=== PATIENT | female | born 1945 | race Caucasian/White ===

== ENCOUNTER 2018-09-11 18:06 | Inpatient (IN) | payer OTHER ==
[~2018-09-11] VITALS: Ht 152.4 cm; Wt 52.5 kg
[~2018-09-11 18:06] MED LIST: HUMALOG100 U/ML SC; LAC PO; LANTUS SOLOS100 U/M1 SC; LOMOTIL1 TAB PO
[2018-09-11 18:11] VITALS: Ht 152.4 cm; Wt 52.5 kg
--- NOTE | 2018-09-11 18:11 | NUR ---
PT BIBA FOR SOB AND CHEST PRESSURE/TIGHTNESS FOR 5 DAYS. PT STS SHE FELT LIKE SHE COULDN'T CATCH HER BREATH SO SHE CALLED 911. PT STS SHE HAS BEEN TAKING HER BS AT HOME AND IT READ "HI". AAOX4, RESPIRATIONS ARE SHALLOW AND RAPID, REPORTS NAUSEA X5 DAYS WITH INCREASED NAUSEA TODAY. ABLE TO AMBULATE TO BED WITHOUT INCIDENCE FROM AMBULANCE GURNEY. NO SWELLING NOTED TO EXTREMITIES. REPORTS DRY MOUTH. MEDICS GAVE PT 200CC NS IV BOLUS AND 324MG ASA PO HUMAN RESOURCES SUPPORT SPECIALIST; ESTABLISHED 22G IV TO R FA. ARRIVED WITH INSULIN PUMP ATTACHED TO ABD AREA. CONNECTED TO [facility].
[2018-09-11 18:43] LABS: BASOPHIL % 0.5 % (0-2); PLATELET COUNT 227 x10^3mcL (130-400); RED CELL DISTRIBUTION WIDTH 14.9 % (11.5-14.5)
--- NOTE | 2018-09-11 18:45 | NUR ---
REPORT GIVEN TO NESTOR MATSON
[2018-09-11 19:14] LABS: UA SPECIFIC GRAVITY <=1.005 (1.005-1.035); microscopic required? YES; urine erythrocyte NEGATIVE (NEGATIVE)
[2018-09-11 19:18] LABS: ALBUMIN 4.1 g/dL (3.4-5.0); ALKALINE PHOSPHATASE 142 U/L (46-116); ALT/SGPT 16 U/L (14-59); AST/SGOT 11 U/L (15-37); CALCIUM 10.5 mg/dL (8.5-10.1); CARBON DIOXIDE 11.4 mmol/L (21-32); CHLORIDE SERUM 94 mmol/L (98-107); SODIUM SERUM 125 mmol/L (136-145); TOTAL PROTEIN, SERUM 6.9 g/dL (6.4-8.2)
--- NOTE | 2018-09-11 19:18 | NUR ---
PER DR ELENA, HAVE PT TURN OFF INSULIN PUMP. PT STATES "I'LL JUST DISCONNECT IT."
[2018-09-11 19:25] LABS: GLUCOSE SERUM 737 mg/dL (74-106); POTASSIUM SERUM 6.6 mmol/L (3.5-5.1)
--- NOTE | 2018-09-11 19:31 | NUR ---
PT AWAKE, ALERT, AND ORIENTED SITTING ON GURNEY WITH HOB RAISED. PT STATES "MAN I REALLY GOTTA PEE". PT ASSISTED ONTO BED GARRISON. PT URINATED MODERATE AMOUNT OF CLEAR YELLOW URINE. RT AT BEDSIDE FOR ABG. PT BREATHING EVEN AND UNLABORED BUT SPEAKING 4-5 WORD SENTENCES.
--- NOTE | 2018-09-11 20:18 | NUR ---
IV TO R WRIST INFILTRATED. IV REMOVED, ANGIO CATH INTACT. BLEEDING CONTROLLED WITH PRESSURE. IV STARTED TO R FA 22 G. IV FLUSHED WITH NO COMPLICATIONS.
--- NOTE | 2018-09-11 20:26 | NUR ---
ACTUAL WT, 52.0 KG. PT ASSISTED ONTO SCALE AT BEDSIDE AND ASSISTED BACK ONTO GURNEY WITH NO INCIDENCES NOTED.
--- NOTE | 2018-09-11 20:40 | NUR ---
ASKED PT ABOUT PREVIOUS BRUISING TO ARMS AND PT STATED "NO I DONT HAVE ANY WOUNDS BUT I DO HAVE SHINGLES". AWARE.
--- NOTE | 2018-09-11 20:42 | NUR ---
ATTEMPTED TO CALL REPORT TO KAIT IN ICU, TOLD KAIT RN WOULD CALL BACK.
--- NOTE | 2018-09-11 20:52 | NUR ---
REPORT GIVEN TO KAIT BAEZ
--- NOTE | 2018-09-11 20:59 | NUR ---
PT TRANSFERED TO ICU BED 5 AT THIS TIME IN NAD. BREATHING EVEN AND UNLABORED. PT A&0X4, SPEAKING FULL CLEAR SENTENCES. PT VERBALIZED UNDERSTANDING OF PLAN OF CARE. PT TRANSFERED VIA [facility] ACCOMPANIED BY IRAM FOREMAN AND DANO BAEZ. INSULIN DRIP AND IV FLUIDS ENDORSED TO KAIT BAEZ.
--- NOTE | 2018-09-11 21:00 | NUR ---
RECEIVED PT FROM ER ACCOMPANIED BY IRAM FOREMAN AND NESTOR MATSON AND TRANSFERRED TO ICU BED 5 PT HAS STABLE GAIT UPON WALKING. PT PLACED ON FULL FOOD TASTER AND PULSE OXIMETRY. RECEIVED PT AOX4 ABLE TO RESPOND TO COMMANDS, MAKE NEEDS KNOWN. GCS=15. PUPILS 4 MM BRISK RESPONSE TO LIGHT B/L, PERRLA. NO REPORTED MATOS, SPEECH CLEAR, NO FACIAL DROOP. TRACHEA MIDLINE, NO DRAINAGE TO EENT, NO EENT COMPLAINTS. PT WEARS GLASSES.PT CAME IN FOR SOB TO ER. PT LUNG SOUNDS CTAB, CHEST RISE/FALL SYMMETRIC, E/U BREATHING, DENIES SOB. NO ACUTE RESP DISTRESS. 2L NC INTACT TO PT.PT CAME IN FOR CHEST PAIN. DENIES CHEST PAIN AT THIS TIME. S1/S2 SOUNDS HEARD, CHEST WALL STABLE.SKIN COLOR CONSISTENT WITH ETHNICITY, CAP REFILL <3 SEC, PULSES MODERATE X4 EXTREMITIES, NO EDEMA. NS INFUSING @ 250 CC/HR FROM ER. INSULIN GTT CHANGED AND NOW INFUSING @ 0.1 UNITS/KG/HR PER DKA PROTOCOL.GEN WEAKNESS REPORTED. ROM ACTIVE, STEADY GAIT TO ICU BED. NO CONTRACTURES/DEFORMITIES NOTED. PT ABLE TO TURN/REPOSITION Q2H. NO JOINT SWELLING/TENDERNESS, INTACT.ACTIVE BOWEL SOUNDS X4 QUADRANTS. ABD SOFT/FLAT. NO BM NOTED. PT REPORTS LAST BM WAS YESTERDAY BROWN STOOL.PT ABLE TO URINATE WITH BEDSIDE COMMODE, CLEAR YELLOW URINE, APPROX 500 ML. NO LABIAL EDEMA, NO VAGINAL DISCHARGE NOTED.PT REPORTS HX OF SHINGLES WITH RASH TO FOREHEAD BUT NONE NOTED AT THIS TIME, PT REPORTS IT HAS CLEARED RECENTLY SINCE TAKING HER MEDICATIONS SHE DOES NOT RECALL AT THIS TIME. PT REPORTS A SKIN RASH TO LLE CARDONA.PT CALM/COOPERATIVE WITH CARE. FAMILY SUPPORTIVE AT BEDSIDE, UPDATED PT AND FAMILY ON POC AND DISEASE PROCESS AND HOSPITAL STAY. BED AT LOWEST SETTING, CALL LIGHT WITHIN REACH, SIDE RAILS UP X2, WILL CONT TO MONITOR.
[2018-09-11 21:26] VITALS: BP 147/73
--- NOTE | 2018-09-11 22:02 | NUR ---
ATTEMPTED TO CALL DR. RAMESH FOR ADMITTING ORDERS THRU THE ANSWERING SERVICE.
--- NOTE | 2018-09-11 22:15 | NUR ---
RECEIVED CALL BACK FROM DR. RAMESH. WILL INPUT ORDERS WITH ASSISTANCE OF NESTOR ZARAGOZA.
[2018-09-11 23:08] VITALS: BP 122/55
--- NOTE | 2018-09-11 23:17 | NUR ---
NASAL CANNULA REMOVED AT THIS TIME. PT DENIES SOB OR TROUBLE BREATHING. PT STATES "I DONT THINK I NEED THE OXYGEN". PT SATURATING AT 98-99% ON ROOM AIR. WILL CONTINUE TO MONITOR.
[2018-09-12 01:11] LABS: CALCIUM 8.9 mg/dL (8.5-10.1); CARBON DIOXIDE 18.1 mmol/L (21-32); CHLORIDE SERUM 109 mmol/L (98-107); CREATININE SERUM 1.5 mg/dL (0.6-1.0); GLUCOSE SERUM 323 mg/dL (74-106); MAGNESIUM 1.9 mg/dL (1.8-2.4); PHOSPHOROUS 2.3 mg/dL (2.5-4.9); POTASSIUM SERUM 5.1 mmol/L (3.5-5.1); SODIUM SERUM 138 mmol/L (136-145)
--- NOTE | 2018-09-12 02:04 | NUR ---
BLOOD SUGAR 161. INSULIN GTT TITRATED TO 0.05 UNITS/KG/HR. WILL ORDER D5 1/2 NS PER DKA PROTOCOL AND DR. RAMESH ORDER.
--- NOTE | 2018-09-12 02:08 | NUR ---
PT REPORTING A MILD HEADACHE AT THIS TIME. WILL ADMINISTER TYLENOL PER EMAR.
--- NOTE | 2018-09-12 02:10 | NUR ---
D5 1/2 NS INITIATED AT THIS TIME @ 150 ML/HR TO KEEP BLOOD SUGAR BETWEEN 150-200.
[2018-09-12 03:02] VITALS: BP 115/52
--- NOTE | 2018-09-12 04:50 | NUR ---
SALES PROMOTION COORDINATOR MIREYA AT BEDSIDE FOR LAB DRAW.
[2018-09-12 05:46] LABS: CARBON DIOXIDE 17.2 mmol/L (21-32); CHLORIDE SERUM 109 mmol/L (98-107); CREATININE SERUM 1.4 mg/dL (0.6-1.0); GLUCOSE SERUM 291 mg/dL (74-106); MAGNESIUM 2.1 mg/dL (1.8-2.4); PHOSPHOROUS 3.3 mg/dL (2.5-4.9); POTASSIUM SERUM 4.8 mmol/L (3.5-5.1); SODIUM SERUM 137 mmol/L (136-145)
--- NOTE | 2018-09-12 06:35 | NUR ---
PT REMAINS ON D5 1/2 NS @ 150 ML/HR AND INSULIN GTT @ 0.05 UNITS/KG/HR PER DKA PROTOCOL. PT SLEEPING BUT EASILY AROUSABLE, NO ACUTE RESP DISTRESS, NO SOB. PT REMAINS ON FULL PARK ACTIVITIES COORDINATOR, CONTINUOUS PULSE OXIMETRY AND NIBP INTERVALS. BED AT LOWEST SETTING, CALL LIGHT WITHIN REACH, HOB ELEVATED 30 DEGREES, SIDE RAILS UP X2. WILL CONTINUE TO MONITOR.
--- NOTE | 2018-09-12 07:15 | NUR ---
GAVE REPORT TO NESTOR STONE. UPDATES GIVEN, QUESTIONS ANSWERED. ENDORSED CARE.
[2018-09-12 07:20] VITALS: BP 106/47
--- NOTE | 2018-09-12 07:20 | NUR ---
PATIENT AWAKE AND ORIENTED TO PERSON, PLACE AND TIME. PATIENT DENIES SHORTNESS OF BREATH, NAUSEA/VOMITING OR PAIN AT THIS TIME. IV SITES TO LFA AND RFA INTACT. IVF D5 1/2 NS AT 150ML/HR AND REGULAR INSULIN DRIP AT 0.05 U/KG/HR. TELE # 5 READS NORMAL SINUS RHYTHMS AT THIS TIME. CALL LIGHT WITHIN REACH. SIDE RAILS UPX 3.
[2018-09-12 08:37] LABS: CALCIUM 9.2 mg/dL (8.5-10.1); CARBON DIOXIDE 18.4 mmol/L (21-32); CHLORIDE SERUM 109 mmol/L (98-107); CREATININE SERUM 1.5 mg/dL (0.6-1.0); GLUCOSE SERUM 90 mg/dL (74-106); PHOSPHOROUS 3.1 mg/dL (2.5-4.9); POTASSIUM SERUM 4.5 mmol/L (3.5-5.1); SODIUM SERUM 141 mmol/L (136-145)
--- NOTE | 2018-09-12 11:01 | NUR ---
DR VILLAREAL AT BEDSIDE TO ASSESS PT. UPDATES PROVIDED.
[2018-09-12 11:14] VITALS: BP 128/56
--- NOTE | 2018-09-12 12:09 | NUR ---
DR. HUGO IS AT BEDSIDE SEEING THE PATIENT.
[2018-09-12 13:31] LABS: CALCIUM 9.4 mg/dL (8.5-10.1); CARBON DIOXIDE 19.9 mmol/L (21-32); CHLORIDE SERUM 108 mmol/L (98-107); CREATININE SERUM 1.2 mg/dL (0.6-1.0); GLUCOSE SERUM 177 mg/dL (74-106); PHOSPHOROUS 2.6 mg/dL (2.5-4.9); POTASSIUM SERUM 4.7 mmol/L (3.5-5.1); SODIUM SERUM 139 mmol/L (136-145)
[2018-09-12 15:30] VITALS: BP 132/67; BP 139/49
--- NOTE | 2018-09-12 15:49 | NUR ---
PATIENTS IV CAME OUT AT THIS TIME. PATIENT ASSESSED, CLEANSED, LINENS AND GOWN CHANGED. NO PROBLEMS NOTED. PATIENT STABLE, WILL CONTINUE TO MONITOR.
[2018-09-12 16:20] LABS: CALCIUM 9.3 mg/dL (8.5-10.1); CHLORIDE SERUM 107 mmol/L (98-107); CREATININE SERUM 1.1 mg/dL (0.6-1.0); GLUCOSE SERUM 270 mg/dL (74-106); PHOSPHOROUS 2.3 mg/dL (2.5-4.9); POTASSIUM SERUM 4.5 mmol/L (3.5-5.1); SODIUM SERUM 138 mmol/L (136-145)
--- NOTE | 2018-09-12 16:49 | NUR ---
AGAP CLOSED X2. DR SANDERS MADE AWARE. ORDERS RECEIVED TO DC DKA PROTOCOL, 45 UNITS LANTUS SQ NOW AND QD AFTER, SS INSULIN, ACHS ACCUCHECKS, AND TO ADD BMP TO AM LABS.
--- NOTE | 2018-09-12 18:07 | NUR ---
REGULAR INSULIN DRIP DISCONTINUED ORDERED.
--- NOTE | 2018-09-12 18:18 | NUR ---
REPORT GIVEN TO NESTOR WILDER. CONCERNS ADDRESSED.
--- NOTE | 2018-09-12 19:02 | NUR ---
REPORT GIVEN TO NESTOR KENT. ALL QUESTIONS ANSWERED.
--- NOTE | 2018-09-12 19:05 | NUR ---
RECEIEVED PATIENT REPORT FROM NESTOR WILDER. QUESTIONS AND CONCERNS ADDRESSED.
--- NOTE | 2018-09-12 19:15 | NUR ---
RECIEVED PATIENT LAYING IN BED, A&O X4, GCS OF 15, FOLLOWS COMMANDS, ABLE TO MAKE NEEDS KNOWN. SR TO FLUTE POLISHER, DENIES CHEST PAIN. SKIN WARM/DRY/INTACT, IV TO RFA PATENT AND FLUSHING WELL. PULSES PALPABLE, CAP REFILL <3 SECONDS, NO EDEMA PRESENT. PATIENT IS AMBULATORY, ABLE TO BEDSIDE COMMODE. WILL MONITOR PATIENT CLOSELY.
[2018-09-12 19:20] VITALS: BP 153/59
--- NOTE | 2018-09-12 19:27 | NUR ---
PATIENT REPORT GIVEN TO NSETOR HAAS. QUESTIONS AND CONCERNS ADDRESSED. PATIENT IS TO BE TRANSFERRED TO ROOM 205 B.
--- NOTE | 2018-09-12 20:00 | NUR ---
RECEIVED TRANSFER PT FROM ICU VIA WHEELCHAIR WITH YOLI BAEZ AT BEDSIDE. PT IS AAOX4. SPEECH CLEAR. ABLE TO MAKE NEEDS KNOWN. DENIES PAIN OR DISCOMFORT. NO TELE MONITOR NEEDED. DENIES CHEST PAIN. LUNG SOUNDS CLEAR. BREATHING EASILY ON ROOM AIR. BS ACTIVE IN ALL FOUR QUADS. NO ABD PAIN NOTED. VOIDING FREELY WITH BRP. PT ABLE TO AMBULATE WITH STEADY GAIT, NO ASSISTANCE NEEDED. DENIES DIZZINESS. IV TO RFA, HL. ORIENTED PT TO ROOM AND SURROUNDINGS. INSTRUCTED PT TO USE CALL LIGHT WHICH IS WITHIN REACH. BED IS IN LOWEST POSITION. ALL NEEDS TENDED TO. WILL CONTINUE TO MONITOR CLOSELY.
[2018-09-12 20:30] VITALS: BP 146/52
--- NOTE | 2018-09-12 21:10 | NUR ---
FSBS IS 468, RECHECKED AND BS IS 441, COVERED PT WITH 18 UNITS OF REGULAR INSULIN ORDERED. PER PT, SHE WOULD LATER LIKE A SPOT CHECK TO SEE HOW MUCH BS HAS DECREASED POST INSULIN SQ. WILL CONTINUE TO MONITOR CLOSELY.
--- NOTE | 2018-09-12 23:00 | NUR ---
SPOT CHECK FSBS IS 387, TRENDING DOWN WILL RECHECK IN AM.
--- NOTE | 2018-09-13 03:45 | NUR ---
PT SLEEPING IN INTERVALS, IN DISTRESS NOTED. WILL CONTINUE TO MONITOR CLOSELY.
[2018-09-13 06:21] VITALS: BP 135/52
[2018-09-13 06:29] LABS: BASOPHIL % 0.6 % (0-2); PLATELET COUNT 225 x10^3mcL (130-400)
--- NOTE | 2018-09-13 06:30 | NUR ---
FSBS IS 70, JUICE PROVIDED. PT LYING IN BED IN NO DISTRESS. CALL LIGHT WITHIN REACH. BED IS IN LOWEST POSITION. ALL NEEDS TENDED TO. WILL ENDORSE TO INCOMING SHIFT.
[2018-09-13 06:32] LABS: CALCIUM 10.7 mg/dL (8.5-10.1); CARBON DIOXIDE 21.9 mmol/L (21-32); CHLORIDE SERUM 110 mmol/L (98-107); GLUCOSE SERUM 71 mg/dL (74-106); POTASSIUM SERUM 3.8 mmol/L (3.5-5.1); SODIUM SERUM 143 mmol/L (136-145)
[2018-09-13 06:39] LABS: RED CELL DISTRIBUTION WIDTH 15.8 % (11.5-14.5)
--- NOTE | 2018-09-13 07:10 | NUR ---
RECEIVED BEDSIDE REPORT FROM LOCK PLATER NURSE. PATIENT RESTING COMFORTABLY IN BED. NO APPARENT SIGNS OF PAIN, SOB, OR RESPIRATORY DISTRESS. PATIENT ON ROOM AIR. IV TO RIGHT FOREARM SALINE LOCKED. NO EDEMA OR ERYTHEMA NOTED AT SITE. PATIENT IS CONCERNED ABOUT SUGAR LEVELS BEING "ALL OVER THE PLACE" LAST GLUCOSE CHECK 70. QUESTIONS AND CONCERNS ADDRESSED. SAFETY PRECAUTIONS IN PLACE.
--- NOTE | 2018-09-13 07:45 | NUR ---
PHYSICAL ASSESSMENT COMPLETED PLEASE SEE PROBLEM FOCUSED CARE FOR DETAILS.
--- NOTE | 2018-09-13 09:00 | NUR ---
PATIENT IS STABLE. RESTING COMFORTABLY IN BED. NO APPARENT SIGNS OF PAIN, SOB, OR RESPIRATORY DISTRESS. DENIES OTHER NEEDS AT THIS TIME. SAFETY PRECAUTIONS IN PLACE.
--- NOTE | 2018-09-13 10:42 | NUR ---
ADMINISTERED MEDICATION PER EMAR. PATIENT EDUCATED ON NEED FOR MEDICATION WELL ADVERSE EFFECTS TO REPORT. PATIENT VERBALIZED UNDERSATNDING. TOLORTATED WELL. QUESTIONS AND CONCERNS ADDRESSED. PATIENT DENIES OTHER NEEDS AT THIS TIME. SAFETY PRECAUTIONS IN PLACE.
[2018-09-13 10:48] VITALS: BP 186/63
--- NOTE | 2018-09-13 10:54 | NUR ---
PAGED MD HUGO TO MAKE AWARE OF HOME MEDICATION AND PATIENT'S LAST BP. WAITING FOR MD TO CALL BACK.
[2018-09-13 14:21] VITALS: BP 186/63
--- NOTE | 2018-09-13 14:35 | NUR ---
PATIENT IS STABLE, ALERT AND ORIENTED. GIVEN DISCHARGE INSTRUCTIONS AND PRESCRIPTIONS. VERBALIZED UNDERSTANDING OF INSTRUCTIONS. ALL PERSONAL BELONGINGS WITH PATIENT. FAMILY AT BEDSIDE. IV REMOVED. ID BANDS REMOVED. QUESTIONS AND CONCERNS ADDRESSED. PATIENT REFUSED WHEEL CHAIR. SON CARRIED ALL PERSONAL BELONGINGS. DISCHARGE COMPLETED.
== END 2018-09-13 14:35 | disposition home or self-care (01) | DRG 637 ==
LOC: ED 18:06 → IC 19:57 → MU 09-12 19:55
PROVIDERS: Emergency Medicine; Specialist; ADMIT Internal Medicine Pulmonary Disease
DX: E10.10 Type 1 diabetes mellitus with ketoacidosis without coma (principal); N17.0 Acute kidney failure with tubular necrosis; E87.1 Hypo-osmolality and hyponatremia; Z96.41 Presence of insulin pump (external) (internal); I10 Essential (primary) hypertension; Z79.4 Long term (current) use of insulin
CPT/HCPCS: 36600; 82962; G0378; J0696; J1815; J2270; J2405; J7030; J7040; Q0092

== ENCOUNTER 2019-01-25 20:37 | Inpatient (IN) | payer OTHER ==
[~2019-01-25] VITALS: Ht 162.6 cm; Wt 56.0 kg
[2019-01-25 21:30] VITALS: BP 79/33
[2019-01-25 21:45] VITALS: BP 100/38
[2019-01-25 22:19] LABS: ALKALINE PHOSPHATASE 235 U/L (46-116); ALT/SGPT 137 U/L (14-59); AST/SGOT 263 U/L (15-37); BASOPHIL % 0.1 % (0-2); BILIRUBIN TOTAL 0.31 mg/dL (0.20-1.00); CARBON DIOXIDE 11.6 mmol/L (21-32); CHLORIDE SERUM 102 mmol/L (98-107); LIPASE 865 IU/L (73-393); PLATELET COUNT 140 x10^3mcL (130-400); POTASSIUM SERUM 4.3 mmol/L (3.5-5.1); SODIUM SERUM 143 mmol/L (136-145); TOTAL PROTEIN, SERUM 4.5 g/dL (6.4-8.2)
[2019-01-25 22:20] LABS: ALBUMIN 2.2 g/dL (3.4-5.0)
[2019-01-25 22:21] LABS: RED CELL DISTRIBUTION WIDTH 14.9 % (11.5-14.5)
[2019-01-25 22:22] LABS: CALCIUM 14.4 mg/dL (8.5-10.1); CREATININE SERUM 4.8 mg/dL (0.6-1.0)
[2019-01-25 22:44] LABS: GLUCOSE SERUM 1271 mg/dL (74-106)
[2019-01-25 22:47] VITALS: BP 79/42
[2019-01-25 23:14] LABS: T3 TOTAL 0.43 ng/mL
[2019-01-25 23:15] LABS: FREE T4 0.74 ng/dL (0.76-1.46)
[2019-01-25 23:16] LABS: FREE THYROXINE INDEX 1.8 ug/dL (1.4-4.5); T4(THYROXINE) 4.3 ug/dL (4.7-13.3)
[2019-01-25 23:25] VITALS: BP 83/39
[2019-01-26] VITALS (13 sets, daily range): BP systolic 43–118; BP diastolic 34–96
[2019-01-26 00:14] LABS: CALCIUM 9.8 mg/dL (8.5-10.1); CHLORIDE SERUM 111 mmol/L (98-107); POTASSIUM SERUM 3.2 mmol/L (3.5-5.1); SODIUM SERUM 148 mmol/L (136-145)
[2019-01-26 00:51] LABS: CREATININE SERUM 4.5 mg/dL (0.6-1.0); GLUCOSE SERUM 1205 mg/dL (74-106)
[2019-01-26 03:51] LABS: BASOPHIL % 0.7 % (0-2); RED CELL DISTRIBUTION WIDTH 14.1 % (11.5-14.5)
[2019-01-26 03:52] LABS: PLATELET COUNT 103 x10^3mcL (130-400)
[2019-01-26 04:11] LABS: CALCIUM 8.8 mg/dL (8.5-10.1); CARBON DIOXIDE 13.2 mmol/L (21-32); CHLORIDE SERUM 113 mmol/L (98-107); MAGNESIUM 2.9 mg/dL (1.8-2.4); PHOSPHOROUS 3.7 mg/dL (2.5-4.9); POTASSIUM SERUM 3.1 mmol/L (3.5-5.1); SODIUM SERUM 147 mmol/L (136-145)
[2019-01-26 04:50] LABS: CREATININE SERUM 4.2 mg/dL (0.6-1.0); GLUCOSE SERUM 1098 mg/dL (74-106)
[2019-01-26 09:02] LABS: CALCIUM 8.1 mg/dL (8.5-10.1); CARBON DIOXIDE 14.6 mmol/L (21-32); CHLORIDE SERUM 115 mmol/L (98-107); MAGNESIUM 2.7 mg/dL (1.8-2.4); PHOSPHOROUS 3.6 mg/dL (2.5-4.9); POTASSIUM SERUM 3.1 mmol/L (3.5-5.1); SODIUM SERUM 148 mmol/L (136-145)
[2019-01-26 09:39] LABS: CREATININE SERUM 4.5 mg/dL (0.6-1.0); GLUCOSE SERUM 1024 mg/dL (74-106)
[2019-01-26 12:18] LABS: CALCIUM 7.5 mg/dL (8.5-10.1); CARBON DIOXIDE 14.7 mmol/L (21-32); CHLORIDE SERUM 112 mmol/L (98-107); MAGNESIUM 2.5 mg/dL (1.8-2.4); PHOSPHOROUS 4.4 mg/dL (2.5-4.9); POTASSIUM SERUM 4.1 mmol/L (3.5-5.1); SODIUM SERUM 142 mmol/L (136-145)
[2019-01-26 12:42] LABS: CREATININE SERUM 4.4 mg/dL (0.6-1.0)
[2019-01-26 15:54] LABS: CALCIUM 7.2 mg/dL (8.5-10.1); CARBON DIOXIDE 14.2 mmol/L (21-32); CHLORIDE SERUM 108 mmol/L (98-107); MAGNESIUM 2.4 mg/dL (1.8-2.4); PHOSPHOROUS 7.8 mg/dL (2.5-4.9); SODIUM SERUM 136 mmol/L (136-145)
[2019-01-26 16:13] LABS: CREATININE SERUM 4.3 mg/dL (0.6-1.0); GLUCOSE SERUM 502 mg/dL (74-106); POTASSIUM SERUM 7.7 mmol/L (3.5-5.1)
[2019-02-08 09:08] LABS: GLUCOSE SERUM 931 mg/dL (74-106)
== END 2019-01-26 20:49 | disposition expired | DRG 871 ==
LOC: ED 20:37 → IC 22:23
PROVIDERS: Emergency Medicine; ADMIT Internal Medicine Pulmonary Disease
PROC: 5A1935Z Respiratory Ventilation, Less than 24 Consecutive Hours (ICD-10-PCS; principal; 2019-01-25)
PROC: 0BH17EZ Insertion of Endotracheal Airway into Trachea, Via Natural or Artificial Opening (ICD-10-PCS; 2019-01-25)
DX: A41.9 Sepsis, unspecified organism (principal); E10.10 Type 1 diabetes mellitus with ketoacidosis without coma; J96.01 Acute respiratory failure with hypoxia; I21.4 Non-ST elevation (NSTEMI) myocardial infarction; J69.0 Pneumonitis due to inhalation of food and vomit; G93.41 Metabolic encephalopathy; K72.00 Acute and subacute hepatic failure without coma; K85.90 Acute pancreatitis without necrosis or infection, unspecified; E87.0 Hyperosmolality and hypernatremia; G93.1 Anoxic brain damage, not elsewhere classified; N17.9 Acute kidney failure, unspecified; E87.6 Hypokalemia; E86.0 Dehydration; R57.0 Cardiogenic shock; Z79.4 Long term (current) use of insulin
CPT/HCPCS: 31500; 36600; 82962; 84439; A4628; G0378; G0480; J0171; J1644; J1815; J2370; J2543; J3370; J3480; J3490; J7030; J7050; Q0092